=== PATIENT | male | born 1995 | race Caucasian/White ===

== ENCOUNTER 2019-03-22 13:45 | Emergency (ER) | payer SELFPAY ==
[2019-03-22 13:45] VITALS: BP 133/84; PULSE 126; RESP 16; TEMP 36.3; O2SAT 95; BMI 27.1
--- NOTE | 2019-03-22 15:45 | ED.DCSUM_ITS ---
- ER Visit Summary Date of Service: 03/22/19 Chief Complaint: Headache, myalgias, and cough History of Present Illness: The patient is a 23 M with no primary care physician. He reports that he cannot feeling well yesterday. He has had subjective fever, chills, cold sweats. He has a nonproductive cough. He denies sore throat. He has been nauseated and vomited 3 times. No blood in his emesis. He denies any abdominal pain or diarrhea. He reports he has diffuse myalgias. States that this is work in his lower back. He has a squeezing pain here that is 7 out of 10 at rest and 10 out of 10 with movement. He denies any trauma. No fall, MVA, or change in activity. He denies any radiation to his legs. No numbness, tingling, or weakness. No problems with his bowels or his bladder. Patient also reports that he has a frontal headache. It is a dull pain that is 7 out of 10 at worst and 5 out of 10 currently. Is worsened by the light. Is relieved by warm shower. He has had similar headaches previously. Reports this is gradually gotten worse since yesterday. Physical Examination: Vitals: 97.4, 133/84, 126, 16, 95% on room air which is not hypoxic. General: Well-nourished and well-developed. Head: Normocephalic atraumatic. Neck: Supple, no lymphadenopathy. No JVD. Nontender. Cardiovascular: Tachycardic regular rhythm. No murmurs. Respiratory: No respiratory distress. Clear to auscultation bilaterally. Abdominal: Soft, nontender, nondistended, normal bowel sounds. No guarding, rebound, or peritoneal signs. Back: Mild diffuse tenderness palpation over the lumbar spine and paraspinous [place] and lumbar region bilaterally. There is no point tenderness. He has a negative straight leg raise bilaterally. He has 5 out of 5 dorsiflexion, plantarflexion, and extensor hallucis longus bilaterally. Normal sensation to light touch throughout. Extremities: Nontender, no edema. Skin: Normal color, no rash. Neurologic: Alert and oriented ?3. Cranial nerves II through XII are intact. Normal strength and sensation. Psych: Normal affect. Test Results: Influenza is negative. Emergency Department Course and Treatment: Patient had an IV placed. He was given a liter of normal saline. He was given Toradol, Compazine, and Benadryl IV. He is resting comfortably. Treatment Plan: Patient will be discharged symptomatic care. Push fluids. Use Tylenol and/or ibuprofen for pain and fever. He is given a prescription for Zofran. Follow-up the [facility] in 1 week if not improving. Return to the emergency department for any worsening symptoms. Disposition: To home in improved and stable condition. Impression: 1. URI. 2. Vomiting. This note was generated with [employer] dictation software. It may contain incorrect words, spelling, and punctuation that were not noted in review of the chart prior to signing ED Disposition - Plan for ED Patient: Disposition: Home or Assisted Living Instructions: ED Upper Resp Infec No Abx Tx Prescriptions: Ondansetron [Zofran Odt] 4 mg PO Q8H PRN PRN #10 tablet PRN Reason: Nausea Referrals: [facility] [NON-STAFF] - 1 Week if not improving
[2019-03-22] MEDS: DiphenhydrAMINE 50 MG/ML Syringe IV (15:52)
[2019-03-22] MEDS: Ketorolac 30 MG/ML Syringe IV (15:52)
[2019-03-22] MEDS: proCHLORPERazine 10 MG/2 ML Vial IV (15:52)
[2019-03-22] MEDS: 0.9% Normal Saline 1,000 ML 1000 ML IV ×2 (15:52→16:52)
[2019-03-22 15:57] VITALS: BP 135/80; PULSE 109; RESP 19; O2SAT 95
[2019-03-22 17:14] VITALS: BP 124/69; PULSE 104; RESP 15; O2SAT 99
== END 2019-03-22 17:15 | disposition home or self-care (01) ==
LOC: ED 16:08
PROVIDERS: Emergency Provider Emergency Medicine
DX: J06.9 Acute upper respiratory infection, unspecified (principal); R11.2 Nausea with vomiting, unspecified
CPT/HCPCS: 87804; 96361; 96374; 96375; 99284; J7030; A4216

== ENCOUNTER 2019-07-23 13:44 | Emergency (ER) | payer SELFPAY ==
[2019-07-23 13:45] VITALS: BP 118/65; PULSE 74; RESP 14; TEMP 36.6; O2SAT 98; BMI 28.3
--- NOTE | 2019-07-23 14:29 | ED.VIS.LOWEX ---
History of Present Illness Informant: Patient Occurred: Weeks - 1 Onset: Weeks - 1 Context: Gradual Onset Timing: Continuous Quality of Pain: Aching Location: Right great toe Current Severity: Moderate Maximum Severity: Severe Worsened by: Movement, palpation, ambulation Relieved by: rest Associated Symptoms: Negative for: Parasthesia, Weakness, Loss of Funtion Narrative: 23-year-old male who denies any significant past medical history presents to the emergency department with pain swelling and redness of his right great toe. Is been getting worse now for about a week. He is concerned he has an ingrown toenail. Denies trauma or injury. He has never had similar symptoms in the past. He has no history of diabetes. Denies any history of MRSA. Denies drug abuse. Denies history of injury or surgeries previously Tetanus Immunization: Unknown Prior similar symptoms: No Recent Illness/Hospitalization: No <Eber Smith - Last Filed: 07/23/19 14:29> <Alirio Shah - Last Filed: 07/23/19 14:56> Chief Complaint: Lower Extremity Injury Past Medical History Prior records reviewed: Yes Past Medical History: None Surgical History: no surgical history Lives: With Family Smoking Status: Current every day smoker <Eber Smith - Last Filed: 07/23/19 14:29> <Alirio Shah - Last Filed: 07/23/19 14:56> - Allergies and Home Meds Allergies/Adverse Reactions: Allergies No Known Allergies Allergy (Verified 07/23/19 13:48) Primary Care Physician: Cem Joyner MD [STAFF PHYSICIAN] - Care Physician,No Primary [Primary Care Provider] - Review of Systems All systems negative except as indicated Skin: Reports: Wounds <Eber Smith - Last Filed: 07/23/19 14:29> Physical Exam Vital Signs/Narrative: Vital Signs Temp Pulse Resp BP Pulse Ox 07/23/19 13:45 97.8 F 74 14 118/65 98 Inital Vital Signs reviewed: Yes - Extremity Exam Right Ankle: Negative for: Abrasion, Contusion, Deformity, Edema, Hematoma, Limited ROM - Patient has now grown toenail right lateral aspect. He has normal range of motion actively. He has normal capillary refill and sensation. There is no lymphatic streaking into his foot or up his leg. Right Foot: Negative for: Abrasion, Contusion, Deformity, Edema, Hematoma, Limited ROM Right Toe: Edema <Eber Smith - Last Filed: 07/23/19 14:29> Vital Signs/Narrative: Vital Signs Temp Pulse Resp BP Pulse Ox 07/23/19 13:45 97.8 F 74 14 118/65 98 <Alirio Shah - Last Filed: 07/23/19 14:56> Diagnostic/Tx/Re-eval - Medical Decision Making Ingrown toenail was removed after digital block manually with scissors and a hemostat. There is no purulent drainage noted. Discussed proper wound care with patient. Discussed signs of infection to monitor for. Advised to wear proper fitting shoes. He was advised to follow-up with his doctor for wound check this week or return to the emergency department for worsening symptoms which we discussed. <Eber Smith - Last Filed: 07/23/19 14:29> - Medical Decision Making History and physical obtained independently. Patient presents with pain swelling great toe. Patient has evidence of infection secondary to ingrown toenail lateral side of the right great toe. There is no lymphangitis. There is no evidence of cellulitis. There is no subungual hematoma. There is no pus noted under the nail either. The lateral fifth of the nail was removed. Patient was discharged with appropriate home-going instructions for ingrown toenail. Includes my H&P. <Alirio Shah - Last Filed: 07/23/19 14:56> Procedures Procedure(s): Ingrown toenail removal. This was done under sterile conditions. Digital block was performed with 1% lidocaine. Lateral aspect of right great toenail was trimmed and then removed with hemostat. <Eber Smith - Last Filed: 07/23/19 14:29> ED Disposition <Eber Smith - Last Filed: 07/23/19 14:29> <Alirio Shah - Last Filed: 07/23/19 14:56> - Plan for ED Patient: Disposition: Home or Assisted Living Diagnosis: Ingrown toenail without infection Instructions: INGROWN TOENAIL, Excised Referrals: Care Physician,No Primary [Primary Care Provider] - Cem Joyner MD [STAFF PHYSICIAN] -
--- NOTE | 2019-07-23 15:00 | ED.RN ---
WOUND CLEANED AFTER PROCEDURE. CLEAN DRY DRESSING APPLIED. HOSPITAL SOCK PLACED ON THAT FOOT. PT INSTRUCTED NOT TO TRY TO SQUEEZE FOOT BACK INTO TENNIS SHOE TODAY.
== END 2019-07-23 15:00 | disposition home or self-care (01) ==
LOC: ED 14:40
PROVIDERS: Emergency Provider Physician Assistant Medical
DX: L60.0 Ingrowing nail (principal); F17.200 Nicotine dependence, unspecified, uncomplicated
CPT/HCPCS: 11750; 99282

== ENCOUNTER 2024-03-04 02:11 | Emergency (ER) | payer OTHER, SELFPAY ==
[2024-03-04] VITALS (32 sets, daily range): BP systolic 115–148; BP diastolic 50–98; PULSE 77–108; RESP 15–25; TEMP 36.6–36.7; O2SAT 91–99; BMI 28.5
--- NOTE | 2024-03-04 02:24 | RAD_ITS ---
INDICATION: cough EXAMINATION/TECHNIQUE: X-RAY - XR Chest 1 View COMPARISON: None. Findings: Single frontal view of the chest. Significantly diminished lung volumes. LUNG PARENCHYMA: No acute focal airspace disease or mass lesion. PLEURA: No pleural effusion. No pneumothorax. HEART/GREAT VESSELS: Cardiomediastinal silhouette is unremarkable. BONES: Osseous structures are unremarkable for age. RAD/Chest 1 View (Portable) IMPRESSION: Given significantly diminished lung volumes, chest with no acute disease. Consider dedicated PA and lateral chest radiographs, with attention to inspiratory effort, when patient is able. Electronically Signed: Eber Oleary MD at 4:51 EDT ,
--- NOTE | 2024-03-04 02:28 | ED.RN ---
Pt threatening staff and threatening to get out of bed and fight the police. x4 locked limb restraints applied per Dr. Lowry at bedside.
[2024-03-04 02:45] LABS: Absolute Lymphocyte Count 2.66 X10^3/uL (0.83-4.51); Absolute Neutrophil Count 4.4 X10^3/uL (2.0-7.7); Basophil% 1.3 % (0-1); Eosinophil# 0.15 X10^3/uL; Eosinophils% 1.9 % (0-5); Hematocrit 47.8 % (40-54); Hemoglobin 16.4 g/dL (13.0-16.5); Lymphocyte # 2.66 X10^3/ul (0.83-4.51); Lymphocyte % 33.7 % (19-41); Mean Corp Hgb Conc 34.3 g/dL (32-36); Mean Corpuscular Hgb 30.9 pg (27.0-32.0); Mean Platelet Vol. 11.2 fl (6.2-12.0); Monocyte# 0.56 X10^3/uL; Monocyte% 7.1 % (0-10); NRBC Flagged by Analyzer 0 % (0-5); Neutrophil # 4.38 X10^3/uL (2.7-7.7); Neutrophil % 55.4 % (47-70); Platelet Count 229 K/mm3 (150-450); RBC Distribution Width CV 11.9 % (11.6-14.6); Red Blood Count 5.31 M/mm3 (4.6-6.2); White Blood Count 7.9 K/mm3 (4.4-11.0)
[2024-03-04 02:49] LABS: Amphetamine Urine VISTA NEGATIVE (<1000 ng/mL); Barbiturate Urine VISTA NEGATIVE (< 200 ng/mL); Benzodiazepine Urine VISTA NEGATIVE (< 200 ng/mL); Cocaine Urine VISTA NEGATIVE (< 300 ng/mL); Ecstacy Urine VISTA NEGATIVE (< 500 ng/mL); Methadone Urine VISTA NEGATIVE (< 300 ng/mL); PCP Urine VISTA NEGATIVE (< 25 ng/mL); THC Urine VISTA NEGATIVE (< 50 ng/mL); Vista UDS pH Range 5
[2024-03-04 03:02] LABS: Anion Gap 9 (5-15); BUN 7 mg/dL (7-18); BUN/Creat Ratio 8.7 RATIO (10-20); Calcium,Total 8.9 mg/dL (8.5-10.1); Chloride 113 mmol/L (98-107); Creatinine, Serum 0.81 mg/dL (0.70-1.30); EST Glomerular Filtration Rate 121 mL/min (>60); Est Glom Filt Rate - Afr Amer 147 mL/min (>60); Estimated Creatinine Clearance 139.77 ml/min; Glucose 116 mg/dL (74-106); Potassium 3.8 mmol/L (3.5-5.1); Sodium Level 144 mmol/L (136-145)
[2024-03-04] MEDS: Haloperidol Lactate 5 MG/ML Vial IV (03:05)
[2024-03-04] MEDS: Ondansetron 4 MG/2 ML Vial IV (03:05)
--- NOTE | 2024-03-04 03:07 | EDS_ITS ---
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 Police state that they were called by the patient's mother because he was intoxicated and reporting that he should kill himself as well as kill others. Police state when they arrived they found the patient obviously intoxicated. He would not cooperate with them so he was ultimately tased. Following this he had improvement of his aggression temporarily and EMS was called to bring him to the hospital for further evaluation of his suicidal/homicidal ideation as well as the fact that he had been tased. The patient cannot offer any further history as to why he feels this way but does admit to remote history of suicidal ideation and attempt PFSH PFS Medical History no medical history no medical history Home Medications naltrexone 50 mg tablet 50 mg PO DAILY 03/04/24 [History Last Taken Unknown] Allergy/AdvReac Type Severity Reaction Status Date / Time No Known Allergies Allergy Verified 03/04/24 02:12 Social History Smoking Status: Current every day smoker tobacco type: cigarettes ROS ROS ED Constitutional Constitutional ED: Denies chills or fever(s) Eyes Eyes: Denies change in vision ENT ENT ED: Denies sore throat Cardiovascular Cardiovascular: Denies chest pain, palpitations or racing heartbeat Respiratory/Chest Respiratory/Chest: Denies cough or dyspnea Gastrointestinal Gastrointestinal: Denies abdominal pain, diarrhea, nausea or vomiting Genitourinary Genitourinary ED: Denies dysuria Musculoskeletal Musculoskeletal: Denies back pain, myalgias or neck pain Integumentary Denies rash Neurologic Neurologic: Denies headache(s) Psychiatric Psychiatric: Reports suicidal ideation and suicidal thoughts Hematologic/Lymphatic Hematologic/Lymphatic: Denies easy bleeding or easy bruising EXAM Physical Exam Const Vital Signs: 03/04/24 02:11 03/04/24 02:45 03/04/24 03:00 Temperature 97.9 F Temperature Source Temporal Pulse Rate 108 H 93 90 Respiratory Rate 19 H 15 16 Blood Pressure 135/83 H 126/80 H Blood Pressure Mean 100 94 Pulse Ox 96 95 95 Oxygen Delivery Method Room Air Oxygen Flow Rate (L/min) 03/04/24 03:01 03/04/24 03:15 03/04/24 03:30 Temperature Temperature Source Pulse Rate 91 87 Respiratory Rate 20 H 21 H Blood Pressure 147/86 H 125/86 H 131/90 H Blood Pressure Mean 99 96 101 Pulse Ox 94 95 Oxygen Delivery Method Oxygen Flow Rate (L/min) 03/04/24 03:45 03/04/24 04:00 03/04/24 04:15 Temperature Temperature Source Pulse Rate 85 85 87 Respiratory Rate 18 18 18 Blood Pressure 121/72 H 119/64 124/80 H Blood Pressure Mean 86 81 92 Pulse Ox 97 95 Oxygen Delivery Method Oxygen Flow Rate (L/min) 03/04/24 05:00 Temperature Temperature Source Pulse Rate 83 Respiratory Rate 17 Blood Pressure 116/64 Blood Pressure Mean 81 Pulse Ox 98 Oxygen Delivery Method Nasal Cannula Oxygen Flow Rate (L/min) 3 Positive well nourished and well developed General Appearance ED: well developed; Negative for pallor HEENT HEENT Narrative: Normocephalic atraumatic Eyes EOMs intact bilaterally Eyes Narrative: Pupils are dilated and sluggish to respond to light consistent alcohol use There is mild scleral injection as well also consistent with alcohol use Neck supple Chest Wall palpation of chest normal Chest Narrative: No bony deformity or crepitance Resp normal respiratory effort and clear to auscultation bilaterally Cardio regular rate and regular rhythm Rate: other Other Details: Heart is regular rate and rhythm without murmurs rubs or gallops Radial and carotid pulses are equal and symmetric GI normal to inspection, nondistended, normoactive bowel sounds, non-tender, non- distended and no masses GI Narrative: No voluntary guarding or rigidity or pulsatile mass Auscultation: normoactive bowel sounds Palpation: soft Back/Spine Back/Spine Narrative: No bony deformity or step-off of the thoracic or lumbar spine no midline tenderness to palpation Patient has a abrasion to the mid to lower thoracic region just lateral to the spine consistent with recent teasing. No secondary changes to suggest infection or retained foreign body Extremity normal to inspection Extremity Narrative: There is also another abrasion to the left upper gluteal region consistent with where the second taser henri went in. There is no surrounding secondary changes to suggest infection or retained foreign body. Neuro oriented x3 and CN's II-XII intact bilaterally Neuro Narrative: Patient is slightly obtunded with GCS of 14 consistent with alcohol use/intoxication. Otherwise neurologic exam is normal with cranial nerves II through XII grossly intact Sensorium / Orientation: orientation impaired Psych Psych Narrative: Patient is slightly obtunded with GCS of 14 consistent with alcohol intoxication He has homicidal and suicidal ideations noted Skin no rashes or lesions noted Skin Narrative: The 2 areas of soft tissue abrasions from recent teasing otherwise normal General Skin Exam: Negative for jaundice or pallor MDM MDM MDM Narrative Medical decision making narrative: Patient arrived to the ER slightly obtunded consistent with alcohol use/intoxication but protecting his airway with no focal neurologic deficit. With report of homicidal and suicidal ideation patient underwent a medical clearance exam to be evaluated by crisis center/psychiatry. As he was also tased he underwent a chest x-ray to ensure there is no pneumothorax and EKG to ensure there is no cardiac dysrhythmia. The patient's alcohol level is elevated at 318 consistent with his physical exam and history. At this time he will need to be watched in the ER for multiple hours until his alcohol level will be below 100 and at that time crisis center can be notified to further assess the patient. From an ER standpoint he is hemodynamically stable with no signs of trauma from the teasing and therefore medically cleared for transfer/placement in a psychiatric hospital History & Record Review Discussion w/independent historian: EMS personnel, Patient and Other (Police) Lab Data Attestation: I reviewed the patient's lab results. Labs: Laboratory Results - last 24 hr 03/04/24 03/04/24 02:22 02:40 WBC 7.9 RBC 5.31 Hgb 16.4 Hct 47.8 MCV 90.0 MCH 30.9 MCHC 34.3 RDW Std Deviation 39.0 RDW Coeff of Michelle 11.9 Plt Count 229 MPV 11.2 Immature Gran % (Auto) 0.600 Neut % (Auto) 55.4 Lymph % (Auto) 33.7 [place] % (Auto) 7.1 Eos % (Auto) 1.9 Baso % (Auto) 1.3 H Absolute Neuts (auto) 4.4 Absolute Lymphs (auto) 2.66 Nucleated RBC % 0 Sodium 144 Potassium 3.8 Chloride 113 H Carbon Dioxide 22.0 Anion Gap 9 BUN 7 Creatinine 0.81 Estim Creat Clear Calc 139.77 Est GFR (MDRD) Af Amer 147 Est GFR (MDRD) Non-Af 121 BUN/Creatinine Ratio 8.7 L Glucose 116 H Calcium 8.9 Urine Opiates Screen NEGATIVE Urine Methadone Screen NEGATIVE Ur Barbiturates Screen NEGATIVE Ur Phencyclidine Scrn NEGATIVE Ur Amphetamines Screen NEGATIVE MDMA (Ecstasy) Screen NEGATIVE U Benzodiazepines Scrn NEGATIVE Urine Cocaine Screen NEGATIVE U Cannabinoids Screen NEGATIVE Ur Drug Screen Comment Ethyl Alcohol 318.0 H* Radiography Diagnostic Testing: Clinical Impression(s) from Imaging Studies Chest X-Ray 03/04/24 02:24 IMPRESSION: Given significantly diminished lung volumes, chest with no acute disease. Consider dedicated PA and lateral chest radiographs, with attention to inspiratory effort, when patient is able. Electronically Signed: Eber Oleary MD at 4:51 EDT , Chest x-ray as interpreted by the emergency medicine physician reveals no acute infiltrate pneumothorax or pleural effusion Management Discussion w/another healthcare provider: Behavioral health Discharge Plan Triage Chief Complaint: Suicidal ED Provider: Trent Lowry Dx/Rx/DC Orders Clinical Impression: Depression with suicidal ideation, Alcohol intoxication Prescriptions: No Action naltrexone 50 mg tablet 50 mg PO DAILY Primary Care Provider: Care Physician,No Primary Referrals: Care Physician,No Primary [Primary Care Provider] -
--- NOTE | 2024-03-04 10:37 | ED.RN ---
This Rn called pt. father maty, at the request of patient to see if father could go and get his clothes from the hotel and return his rental car. maty did not answer, voicemail left.
--- NOTE | 2024-03-04 11:10 | ED.RN ---
This RN spoke with pt.father David and updated him. Pt. denies any needs at this time.
--- NOTE | 2024-03-04 11:15 | ED.RN ---
PT. chain of command through the called. Bogdan Medina. This RN checked with patient and he asked that I just let them know he is ok and he would update them. Caller updated with what patient requested.
--- NOTE | 2024-03-04 17:18 | ED.RN ---
This RN went into room to get his home medications. Pt. states he takes no home medications. This RN also updated patient on how being placed in a mental health facility works. All of patient questions answered and denies needs. Pt. has been calm and cooperative this entire shift with this nurse.
--- NOTE | 2024-03-04 18:54 | ED.RN ---
CALLED [facility]IS[facility] AT [phone] FOR AN UPDATE ON WHERE THEY HAVE ATTEMPTED PLACEMENT AND IF THEY COULD SENT OVER THE ASSESSMENT. -DAVID HARMON
--- NOTE | 2024-03-04 19:15 | ED.RN ---
First Marilou Glaser [phone], okay to give information. Also Captain Jose Enrique Winchester [phone].
--- NOTE | 2024-03-05 00:13 | ED.RN ---
Report called to VALENTE Graves took report.
[2024-03-05 04:37] VITALS: BP 140/79; PULSE 73; RESP 16; TEMP 36.6; O2SAT 95
[2024-03-05 06:48] VITALS: BP 149/85; PULSE 91; RESP 19; TEMP 36.3; O2SAT 96
[2024-03-05 07:00] VITALS: BP 136/79; PULSE 17; RESP 79; TEMP 36.6; O2SAT 94
== END 2024-03-05 08:59 ==
PROVIDERS: Emergency Provider Emergency Medicine; Visit Provider Emergency Medicine
DX: F32.A Depression, unspecified (principal); R45.851 Suicidal ideations; R45.850 Homicidal ideations; F10.929 Alcohol use, unspecified with intoxication, unspecified; S30.810A Abrasion of lower back and pelvis, initial encounter; Y35.831A Legal intervention involving a conducted energy device, law enforcement official injured, initial encounter; Z91.51 Personal history of suicidal behavior; Y90.8 Blood alcohol level of 240 mg/100 ml or more; F17.210 Nicotine dependence, cigarettes, uncomplicated
CPT/HCPCS: 71045; 80048; 80307; 80320; 85025; 87635; 93005; 96374; 96375; 99285; A4216; G0480; J2405